=== PATIENT | male | born 1965 | race Native Hawaiian/Other Pacific Islander ===

== ENCOUNTER 2017-06-11 07:25 | Outpatient (CLI) | payer BC | END 2017-06-11 19:09 | disposition home or self-care (01) | LOC: NM 07:25 | DX: R07.89 Other chest pain (principal) | CPT/HCPCS: A9500 ==

== ENCOUNTER 2017-06-23 10:52 | Outpatient (CLI) | payer BC ==
[2017-06-23 11:15] LABS: POTASSIUM 4.3 mmol/L (3.6-5.2); SODIUM 138 mmol/L (136-145)
== END 2017-06-23 11:55 | disposition home or self-care (01) ==
LOC: LABW 10:52
PROVIDERS: Nurse Practitioner Adult Health
DX: E87.6 Hypokalemia (principal)
CPT/HCPCS: 36415; 80048

== ENCOUNTER 2019-01-04 16:31 | Emergency (ER) | payer BC ==
[~2019-01-04] VITALS: Ht 172.7 cm; Wt 96.2 kg
[2019-01-04 17:50] LABS: PLATELET COUNT 298 K/uL (142-355)
[2019-01-04 18:00] LABS: POTASSIUM 3.8 mmol/L (3.6-5.2)
[2019-01-04 18:30] VITALS: BP 120/84; TEMP 98
== END 2019-01-04 18:30 | disposition home or self-care (01) ==
LOC: ED 16:31
PROVIDERS: Family Medicine
DX: S80.12XA Contusion of left lower leg, initial encounter (principal); R60.9 Edema, unspecified; W22.8XXA Striking against or struck by other objects, initial encounter
CPT/HCPCS: 36415; 80053; 85027; 85379; 96372; 99283; J1885

== ENCOUNTER 2019-01-05 09:40 | Outpatient (CLI) | payer BC | END 2019-01-05 19:16 | disposition home or self-care (01) | LOC: US 09:40 | DX: M79.89 Other specified soft tissue disorders (principal) ==

== ENCOUNTER 2020-07-28 07:38 | Outpatient (CLI) | payer BC, OTHER | END 2020-07-28 20:02 | disposition home or self-care (01) | LOC: LAB 07:38 | DX: Z20.828 Contact with and (suspected) exposure to other viral communicable diseases (principal) | CPT/HCPCS: 87635; G2023; U0003 ==

== ENCOUNTER 2023-04-29 13:22 | Outpatient (CLI) | payer BC | END 2023-04-29 18:59 | disposition home or self-care (01) | LOC: RESP 13:22 | PROVIDERS: ATTEND Internal Medicine | DX: R06.02 Shortness of breath (principal) ==

== ENCOUNTER 2023-07-03 08:49 | Outpatient (CLI) | payer BC | END 2023-07-03 18:56 | disposition home or self-care (01) | LOC: RESP 08:49 | PROVIDERS: ATTEND Specialist | DX: I10 Essential (primary) hypertension (principal); E78.49 Other hyperlipidemia; R06.09 Other forms of dyspnea ==

== ENCOUNTER 2023-07-08 09:37 | Outpatient (CLI) | payer BC | END 2023-07-08 18:54 | disposition home or self-care (01) | LOC: RESP 09:37 | PROVIDERS: ATTEND Specialist | DX: I10 Essential (primary) hypertension (principal); E78.49 Other hyperlipidemia; R06.09 Other forms of dyspnea ==